=== PATIENT | female | born 1990 | race Caucasian/White ===

== ENCOUNTER → 2022-10-09 | Outpatient (CLI) | payer SELFPAY ==
[2022-10-09 13:23] LABS: Source, Urine Clean Catch
[2022-10-09 13:34] LABS: Bacteria Mod /hpf; Mucus Light (0-Heavy); Red Blood Cells, Urine 0-2 /hpf (0-2); Squamous Epithelial Cells Few /hpf (Few); White Blood Cells, Urine 0-2 /hpf (0-5)
== END | disposition home or self-care (01) ==
LOC: LAB SHORT 10:15
PROVIDERS: Obstetrics & Gynecology
DX: Z34.01 Encounter for supervision of normal first pregnancy, first trimester (principal)
CPT/HCPCS: 81015; 87086

== ENCOUNTER 2023-04-06 09:44 | Inpatient (IN) | payer BC ==
[2023-04-06] VITALS (14 sets, daily range): BP systolic 103–128; BP diastolic 56–94
[~2023-04-06] VITALS: Ht 162.6 cm; Wt 81.2 kg
[2023-04-06] MEDS ORDERED: PRENATAL 19 TA1 EAC3 PO (10:21)
[2023-04-06] MEDS ORDERED: MAGNESIUM OXID500 MG PO (10:22)
[2023-04-06 10:50] LABS: BASOPHILS ABSOLUTE AUTO 0.02 K/mm3 (0.00-0.23); BASOPHILS PERCENT AUTO 0 % (0-2); EOSINOPHILS ABSOLUTE AUTO 0.11 K/mm3 (0.00-0.68); EOSINOPHILS PERCENT AUTO 2 % (0-6); Hemoglobin 12.4 g/dL (11.5-16.0); IMMATURE GRAN ABSOLUTE AUTO 0.03 K/mm3 (0.00-0.10); IMMATURE GRAN PERCENT AUTO 0 % (0-1); LYMPHOCYTES ABSOLUTE AUTO 1.19 K/mm3 (0.84-5.20); LYMPHOCYTES PERCENT AUTO 17 % (21-46); MONOCYTES ABSOLUTE AUTO 0.49 K/mm3 (0.16-1.47); MONOCYTES PERCENT AUTO 7 % (4-13); Mean Corpuscular HGB 30.4 pg (26.0-34.0); Mean Corpuscular HGB Conc 34.4 g/dL (31.5-36.5); Mean Corpuscular Volume 88 fL (80-100); Mean Platelet Volume 12.6 fL (9.1-12.4); NEUTROPHILS ABSOLUTE AUTO 5.17 K/mm3 (1.96-9.15); NEUTROPHILS PERCENT AUTO 74 % (41-73); Platelet Count 94 K/mm3 (150-400); RDW Coefficient Variation 12.4 % (11.7-14.2); RDW Standard Deviation 40.3 fL (35.1-46.3); Red Blood Cell Count 4.08 M/mm3 (3.80-5.20); White Blood Cell Count 7.01 K/mm3 (4.00-11.30)
--- NOTE | 2023-04-06 11:11 | NUR ---
kendra OR charge notified of pt plt count of 94. dr jasmine messaged plt count
--- NOTE | 2023-04-06 11:55 | NUR ---
OR called with update. dr mendez reports will do a spinal with plt at 94. c/s puhsed back to 1300
[2023-04-06 14:13] LABS: PCO2 Cord - Venous 50.1 mmHg (40-50); PO2 Cord - Venous 32.6 mmHg (28-32); pH Umbilical Cord - Venous 7.34 (7.26-7.35)
[2023-04-06 14:15] LABS: PCO2 Cord - Arterial 49.9 mmHg (40-50); PO2 Cord - Arterial 32.9 mmHg (16-20); pH Cord - Arterial 7.34 (7.28-7.35)
--- NOTE | 2023-04-06 14:22 | NUR ---
04/06/23 1422 Rosita Hall VIABLE FEMALE DELIVERED BREECH VIA PRIMARY C/SECTION AT 1357. CORD SEGMENT COLLECTED FOR CORD GASSES. CORD BLOOD COLLECTED AND GIVEN TO TRACEY SHIN FOR BABY BLOOD TYPE.
--- NOTE | 2023-04-06 16:04 | NUR ---
OR scrub hadnt done QBL before and got and 84. circ and baby nurse talked and est about 500-[address] jasmine and she reports that she felt is was about 500 EBL[address] documented E[address] per [address] jasmine opinion instead of qbl by instrument room technician.
--- NOTE | 2023-04-06 16:49 | NUR ---
REPORT AN RN, LEE ON, QBL 18
[2023-04-06 17:02] LABS: BASOPHILS ABSOLUTE AUTO 0.03 K/mm3 (0.00-0.23); BASOPHILS PERCENT AUTO 0 % (0-2); EOSINOPHILS ABSOLUTE AUTO 0.04 K/mm3 (0.00-0.68); EOSINOPHILS PERCENT AUTO 0 % (0-6); Hematocrit 35.1 % (33.0-51.0); Hemoglobin 12.3 g/dL (11.5-16.0); IMMATURE GRAN ABSOLUTE AUTO 0.04 K/mm3 (0.00-0.10); IMMATURE GRAN PERCENT AUTO 0 % (0-1); LYMPHOCYTES ABSOLUTE AUTO 0.99 K/mm3 (0.84-5.20); LYMPHOCYTES PERCENT AUTO 9 % (21-46); MONOCYTES ABSOLUTE AUTO 0.56 K/mm3 (0.16-1.47); MONOCYTES PERCENT AUTO 5 % (4-13); Mean Corpuscular HGB 30.8 pg (26.0-34.0); Mean Corpuscular Volume 88 fL (80-100); Mean Platelet Volume 12.3 fL (9.1-12.4); NEUTROPHILS ABSOLUTE AUTO 9.81 K/mm3 (1.96-9.15); NEUTROPHILS PERCENT AUTO 86 % (41-73); Platelet Count 99 K/mm3 (150-400); RDW Coefficient Variation 12.4 % (11.7-14.2); RDW Standard Deviation 39.8 fL (35.1-46.3); White Blood Cell Count 11.47 K/mm3 (4.00-11.30)
[2023-04-06 17:22] LABS: Albumin, Blood 2.4 g/dL (3.4-5.0); Albumin/Globulin Ratio 0.7 (0.8-1.8); Bilirubin, Total 0.3 mg/dL (0.1-1.0); Bun/Creatinine Ratio 8.1 (12.0-20.0); Calcium, Blood 8.1 mg/dL (8.5-10.1); Creatinine, Blood 0.5 mg/dL (0.40-1.00); Globulin, Blood 3.3 g/dL (2.2-4.0); Potassium, Blood 3.5 mmol/L (3.5-5.5); Total Protein, Blood 5.7 g/dL (6.4-8.2)
--- NOTE | 2023-04-06 22:20 | NUR ---
AT BEGINNING OF SHIFT, IT WAS DISCUSSED WITH PT THAT WE WILL BE TAKING HER GRANGER CATHETER OUT, GETTING HER UP TO VOID AND TO THE SHOWER, AND CHANGING HER BEDDING. SHE REPLIED THAT SHE DIDN'T KNOW IF SHE WAS READY TO GET UP QUITE YET. I ASKED HER TO LET ME KNOW WHEN SHE WAS READY. AT 2200 SHE SAID SHE WAS READY TO TRY TO STAND AT THE BESIDE. RN AND OBT ASSISTED PT TO STAND AND SHE SAID THE INCISION HURT MORE THAN SHE THOUGHT IT WOULD AND SHE WANTED TO TRY AGAIN LATER. PT'S BINDER WAS CHANGED AND SHE RECEIVED NICOLE CARE AND PAD CHANGE. GRANGER BAG WAS EMPTIED, WHICH CONTAINED 800 ML URINE. IMPORTANCE OF GETTING UP AND MOVING AROUND AFTER SURGERY WAS STRESSED TO PT. SHE WILL CALL WHEN SHE IS READY TO TRY TO GET UP AGAIN. IT WAS DISCUSSED THAT WE COULD TRY TO GET HER TO A CHAIR.
[2023-04-07 04:32] VITALS: BP 107/65
--- NOTE | 2023-04-07 04:44 | NUR ---
DISCUSSED GETTING PT UP AGAIN AND GETTING HER GRANGER CATHETER OUT AND CHANGING BEDDING. SHE WAS GIVEN PAIN MEDICATION AND WILL CALL IN ABOUT 30 MINUTES TO GET UP.
[2023-04-07 05:37] LABS: BASOPHILS ABSOLUTE AUTO 0.02 K/mm3 (0.00-0.23); BASOPHILS PERCENT AUTO 0 % (0-2); EOSINOPHILS ABSOLUTE AUTO 0.08 K/mm3 (0.00-0.68); EOSINOPHILS PERCENT AUTO 1 % (0-6); Hematocrit 34.4 % (33.0-51.0); Hemoglobin 11.8 g/dL (11.5-16.0); IMMATURE GRAN ABSOLUTE AUTO 0.03 K/mm3 (0.00-0.10); IMMATURE GRAN PERCENT AUTO 0 % (0-1); LYMPHOCYTES ABSOLUTE AUTO 1.03 K/mm3 (0.84-5.20); LYMPHOCYTES PERCENT AUTO 12 % (21-46); MONOCYTES PERCENT AUTO 7 % (4-13); Mean Corpuscular HGB 30.3 pg (26.0-34.0); Mean Corpuscular HGB Conc 34.3 g/dL (31.5-36.5); Mean Corpuscular Volume 88 fL (80-100); Mean Platelet Volume 12.4 fL (9.1-12.4); NEUTROPHILS ABSOLUTE AUTO 7.05 K/mm3 (1.96-9.15); NEUTROPHILS PERCENT AUTO 80 % (41-73); Platelet Count 93 K/mm3 (150-400); RDW Coefficient Variation 12.6 % (11.7-14.2); RDW Standard Deviation 40.9 fL (35.1-46.3); Red Blood Cell Count 3.89 M/mm3 (3.80-5.20); White Blood Cell Count 8.81 K/mm3 (4.00-11.30)
[2023-04-07 07:23] VITALS: BP 112/72
[2023-04-07 11:14] VITALS: BP 113/71
[2023-04-07 16:05] VITALS: BP 116/74
[2023-04-07 19:17] VITALS: BP 127/68
[2023-04-07 23:55] VITALS: BP 130/75
[2023-04-08 03:45] VITALS: BP 126/81
[2023-04-08 08:55] VITALS: BP 116/72
[2023-04-08] MEDS ORDERED: IBUP800 PO (09:50)
[2023-04-08] MEDS ORDERED: Percocet 5-3251 EACH (09:51)
[2023-04-08 12:26] VITALS: BP 112/77
== END 2023-04-08 13:25 | disposition home or self-care (01) | DRG 788 ==
LOC: BC 09:44
PROVIDERS: ADMIT Obstetrics & Gynecology
PROC: 3E0234Z Introduction of Serum, Toxoid and Vaccine into Muscle, Percutaneous Approach (ICD-10-PCS; 2023-04-06)
PROC: 10D00Z1 Extraction of Products of Conception, Low, Open Approach (ICD-10-PCS; principal; 2023-04-06 13:00)
DX: O32.1XX0 Maternal care for breech presentation, not applicable or unspecified (principal); Q51.810 Arcuate uterus; O73.0 Retained placenta without hemorrhage; Z37.0 Single live birth; O99.824 Streptococcus B carrier state complicating childbirth; O26.893 Other specified pregnancy related conditions, third trimester; Z67.11 Type A blood, Rh negative; Z3A.39 39 weeks gestation of pregnancy
CPT/HCPCS: 36415; 80053; 82803; 85025; 85460; 86850; 86900; 86901; 86923; A9270; J0690; J1885; J2371; J2590; J2704; J2765; J2791; J3010; J7120